=== PATIENT | female | born 1985 | race Caucasian/White ===

== ENCOUNTER 2020-05-30 13:35 | Emergency (ER) | payer OTHER, SELFPAY ==
[2020-05-30 13:35] VITALS: BP 129/81; PULSE 70; RESP 14; TEMP 36.4; O2SAT 98; BMI 18.4
--- NOTE | 2020-05-30 13:37 | ED_ITS ---
HPI - Abdominal Pain General Chief Complaint: Abdominal Pain Stated Complaint: SEVERE STOMACH PAIN STARTED FEW HOURS AGO Time Seen by Provider: 05/30/20 13:37 Source: patient Mode of arrival: Ambulatory Limitations: no limitations History of Present Illness HPI narrative: 34-year-old female nonsmoker with noncontributory medical history presents with a chief complaint of relatively sudden onset upper abdominal pain that started a few hours ago. She states it is worse when she moves and improves with rest. She states she feels it might get worse when she eats or drinks. Her last oral intake was about 2 hours ago. She has been nauseated but denies any vomiting. She states the pain is aching and cramping and relatively constant. She denies any radiation of her pain. She denies chest pain or shortness of breath. She has no runny nose, sore throat or cough. She denies any change in bowel habits such as constipation or diarrhea. She denies any dysuria, frequency or urgency. MD complaint: abdominal pain Onset (ago): hour(s) Pain Consistency: constant Location: epigastric Severity: moderate Quality: cramping and aching Radiation: none Migration to: no migration Relieving factors: nothing Exacerbating factors: eating and movement Associated symptoms: nausea Related Data Previous Rx's Medication Instructions Recorded pantoprazole [Protonix] 40 mg PO DAILY #30 tab 05/30/20 Allergies Allergy/AdvReac Type Severity Reaction Status Date / Time cefaclor [CEFACLOR] Allergy Mild Hives Verified 05/30/20 13:44 Sulfa (Sulfonamide Allergy Mild BLISTERS Verified 05/30/20 13:44 Antibiotics) IN MOUTH [SULFA (SULFONAMIDE ANTIBIOTICS)] Review of Systems Constitutional Constitutional: Denies chills, Denies fatigue, Denies fever(s), Denies frequent falls, Denies lethargy and Denies weakness Eyes Eyes: Denies change in vision, Denies eye discharge, Denies irritation and Denies loss of vision ENT Ears, Nose, Mouth, and Throat: Denies change in voice, Denies dizziness, Denies neck pain, Denies sore throat and Denies throat swelling Cardiovascular Cardiovascular: Denies chest pain, Denies irregular heart rhythm, Denies lightheadedness, Denies palpitations, Denies dyspnea, Denies dyspnea on exertion and Denies orthopnea Respiratory Respiratory: Denies cough, Denies dyspnea, Denies dyspnea on exertion and Denies wheezing Gastrointestinal Gastrointestinal: Reports abdominal pain, Denies change in bowel habits, Denies diarrhea, Reports nausea and Denies vomiting Musculoskeletal Musculoskeletal: Denies neck pain and Denies numbness Integumentary/Breasts Skin/Breast: Denies pruritus, Denies erythema, Denies rash and Denies wounds Neurologic Neurologic: Denies behavioral changes, Denies confusion, Denies dizziness, Denies frequent falls, Denies loss of vision, Denies numbness and Denies weakness Psychiatric Psychiatric: Denies anxiety, Denies behavioral changes, Denies confusion, Denies depression, Denies homicidal ideation and Denies suicidal ideation Endocrine Endocrine: Denies fatigue, Denies flushing and Denies palpitations Hematologic/Lymphatic Hematologic/Lymphatic: Denies easy bruising Allergic/Immunologic Allergic/Immunologic: Denies urticaria, Denies throat swelling and Denies wheezing Patient History Surgical History Status post myringotomy with insertion of tube Family History Father Age: 61 Sleep apnea High cholesterol Mother Age: 61 High cholesterol Grandfather Age: 83 Lung cancer Colorectal cancer ETOH abuse Grandmother Age: 85 High cholesterol Stroke Social History Smoking Status: Never smoker Smoking Status: Never smoker alcohol intake frequency: 0-2 drinks per day Substance Use Type: does not use Exam Narrative Exam Narrative: GENERAL: [34] year old patient appears stated age. Well- nourished, well-developed patient, in mild distress. Obviously uncomfortable, rubbing her upper abdomen, holding an emesis bag which is empty HEAD: Atraumatic. Normocephalic. EYES: Pupils equal round and reactive. Extraocular motions intact. No scleral icterus. No injection or drainage. ENT: Nose without bleeding, purulent drainage. Throat without erythema, tonsill ar hypertrophy or exudate. Airway patent. NECK: Trachea midline. Non tender CARDIOVASCULAR: Regular rate and rhythm without murmurs, gallops, or rubs. RESPIRATORY: Clear to auscultation. Breath sounds equal bilaterally. No wheezes, rales, or rhonchi. GASTROINTESTINAL: Abdomen soft, non-tender, nondistended. EXTREMITIES: No edema or joint tenderness. BACK: Nontender without deformity or crepitance. No flank tenderness. NEURO: AOx3. SKIN: No rash or erythema of visible areas Initial Vital Signs Initial Vital Signs: Vital Signs Temperature 97.6 F 05/30/20 13:35 Pulse Rate 70 05/30/20 13:35 Respiratory Rate 14 05/30/20 13:35 Blood Pressure 129/81 05/30/20 13:35 Pulse Oximetry 98 05/30/20 13:35 Course Orders Ordered: Discontinued Medications Al Hydrox/Mg Hydrox/Simethicone 20 ml/ Lidocaine HCl 15 ml 0 ml PO NOW ONE Stop: 05/30/20 13:49 Last Admin: 05/30/20 14:04 Dose: 35 ml Documented by: KRISTAL Lactated Ringer's (Lactated Ringers) 1,000 mls @ 1,000 mls/hr IV BOLUS ONE Stop: 05/30/20 14:47 Last Infusion: 05/30/20 15:08 Dose: 0 mls/hr Documented by: Admin: 05/30/20 14:03 Dose: 1,000 mls/hr Documented by: KRISTAL Ondansetron HCl (Ondansetron 4 Mg/2 Ml Inj) 4 mg IV Q4HR PRN PRN Reason: Nausea And Vomiting Last Admin: 05/30/20 14:04 Dose: 4 mg Documented by: KRISTAL Pantoprazole Sodium (Pantoprazole 40 Mg Vial) 40 mg IV NOW ONE Stop: 05/30/20 13:49 Last Admin: 05/30/20 14:04 Dose: 40 mg Documented by: KRISTAL Vital Signs Vital signs: Vital Signs - 8 hr 05/30/20 13:35 Temperature 97.6 F Pulse Rate 70 Respiratory Rate 14 Blood Pressure 129/81 Pulse Oximetry 98 MDM - Abdominal Pain Lab Data Result diagrams: 05/30/20 13:48 05/30/20 13:48 Labs: Lab Results 05/30/20 05/30/20 Range/Units 13:48 13:48 WBC 7.3 (4.5-11.0) X10^3/uL RBC 4.74 (4.0-5.2) X10^6/uL Hgb 14.2 (12.0-16.0) g/dL Hct 41.5 (36-46) % MCV 87.6 (80-100) fL MCH 29.9 (26-34) PG MCHC 34.1 (30-36) % RDW 13.2 (11.6-14.8) % Plt Count 263 (150-400) X10^3/uL Neut % (Auto) 60.7 (50-75) % Lymph % (Auto) 28.5 (25-40) % [place] % (Auto) 7.9 (3-14) % Eos % (Auto) 1.5 L (2-4) % Baso % (Auto) 1.4 (0-2) % Neut # (Auto) 4400 (5914-3966) /uL Lymph # (Auto) 2100 (0849-3444) /uL [place] # (Auto) 600 (0-900) /uL Eos # (Auto) 100 (0-450) /uL Baso # (Auto) 100 (0-100) /uL Sodium 138 (137-145) mmol/L Potassium 3.5 (3.4-5.1) mmol/L Chloride 105 (98-107) mmol/L Carbon Dioxide 26 (22-32) mmol/L BUN 14 (7-17) mg/dL Creatinine 0.64 (0.52-1.04) mg/dL Estimated GFR > 60.0 (>60) mL/min BUN/Creatinine Ratio 21.9 (6-22) Glucose 103 H (70-100) mg/dL Calcium 9.1 (8.4-10.2) mg/dL Total Bilirubin 0.4 (0.2-1.3) mg/dL AST 27 (14-36) IU/L ALT 13 (<35) IU/L Alkaline Phosphatase 50 (38-126) U/L Total Protein 7.5 (6.3-8.2) g/dL Albumin 4.6 (3.5-5.0) g/dL Globulin 2.9 (1.7-4.1) g/dL Albumin/Globulin Ratio 1.6 (1.0-2.8) Lipase 81 (23-300) U/L Point of care testing: Point of Care Testing Test Results Negative Urine Dip Bedside Urine Glucose Negative Bedside Urine Bilirubin - Negative Bedside Urine Ketone - Negative Urine Specific [place] 1.015 Bedside Urine Occult Blood - Negative Bedside Urine pH 7.0 Bedside Urine Protein - Negative Bedside Urine Urobilinogen - Negative Bedside Urine Nitrite - Negative Bedside Urine Leukocytes - Negative Esterase MDM Narrative Medical decision making narrative: Multiple etiologies for patient's symptoms considered including: [Bowel obstruction (thought unlikely given lack of exam findings and complete resolution of symptoms) versus] Patient's symptoms improved over duration of stay with above-stated therapies. Findings and discharge diagnosis discussed with patient/family followed by verbalization of understanding Return precautions discussed with patient/family whom verbalize understanding. Discharge Plan Departure Patient Disposition: Home Clinical Impression: Acute epigastric pain Instructions: DI for Epigastric Pain Activity Restrictions/Additional Instructions: *You have been diagnosed with [acute epigastric pain likely due to esophageal spasm, increased acid production, possibly early ulcer. Your exam, response to medications and lab work are very reassuring] *What to do: *Take medications as directed. Avoid excess caffeine, nicotine, alcohol, spicy or fatty foods *Follow up with your primary care provider in 2-3 days, call for an appointment. Let them know you were seen in the Emergency Department and that we ask that you be seen in follow up *Return to ER if you should have any new, worsening or concerning symptoms, such as [increasing pain, persistent vomiting, fever greater than 101 F or other bothersome symptoms] Prescriptions: New pantoprazole [Protonix] 40 mg tablet,delayed release (DR/EC) 40 mg PO DAILY Qty: 30 RF: 0
[2020-05-30 13:42] VITALS: BP 129/81; PULSE 73; O2SAT 99
[2020-05-30 13:48] VITALS: O2SAT 95
[2020-05-30 14:00] VITALS: BP 114/70
[2020-05-30 14:03] LABS: Add Manual Diff / Slide Review NO; Basophils Absolute Auto 100 /uL (0-100); Basophils Percent Auto 1.4 % (0-2); Eosinophils Absolute Auto 100 /uL (0-450); Eosinophils Percent Auto 1.5 % (2-4); Hematocrit 41.5 % (36-46); Hemoglobin 14.2 g/dL (12.0-16.0); Lymphocytes Absolute Auto 2100 /uL (1100-4500); Lymphocytes Percent Auto 28.5 % (25-40); Mean Corpuscular HGB Conc 34.1 % (30-36); Mean Corpuscular Hemoglobin 29.9 PG (26-34); Mean Corpuscular Volume 87.6 fL (80-100); Monocytes Absolute Auto 600 /uL (0-900); Monocytes Percent Auto 7.9 % (3-14); Neutrophils Absolute Auto 4400 /uL (1500-7000); Neutrophils Percent Auto 60.7 % (50-75); Platelet Count 263 X10^3/uL (150-400); Red Blood Cell Count 4.74 X10^6/uL (4.0-5.2); Red Cell Distribution Width 13.2 % (11.6-14.8); White Blood Cell Count 7.3 X10^3/uL (4.5-11.0)
[2020-05-30] MEDS: LACTATED RINGERS 1,000 ML 1000 ML IV (14:03)
[2020-05-30] MEDS: PANTOPRAZOLE 40 MG VIAL IV (14:04)
[2020-05-30] MEDS: MAG HYDROX/ALUMINUM/SIMETH SUS 20 ML, LIDOCAINE VISCOUS 2% 15 ML PO (14:04)
[2020-05-30] MEDS: ONDANSETRON 4 MG/2 ML INJ IV (14:04)
[2020-05-30 14:09] LABS: Alanine Aminotransferase 13 IU/L (<35); Albumin 4.6 g/dL (3.5-5.0); Albumin Globulin Ratio 1.6 (1.0-2.8); Alkaline Phosphatase 50 U/L (38-126); Aspartate Aminotransferase 27 IU/L (14-36); BUN Creatinine Ratio 21.9 (6-22); Bilirubin Total 0.4 mg/dL (0.2-1.3); Blood Urea Nitrogen 14 mg/dL (7-17); Calcium 9.1 mg/dL (8.4-10.2); Carbon Dioxide 26 mmol/L (22-32); Chloride 105 mmol/L (98-107); Estimated Glomerular Filt Rate > 60.0 mL/min (>60); Globulin 2.9 g/dL (1.7-4.1); Glucose 103 mg/dL (70-100); HEMOLYSIS 17 (0-50); Lipase 81 U/L (23-300); Potassium 3.5 mmol/L (3.4-5.1); Sodium 138 mmol/L (137-145); Total Protein 7.5 g/dL (6.3-8.2)
[2020-05-30 15:08] VITALS: BP 110/77; PULSE 74; RESP 12; O2SAT 97
--- NOTE | 2020-05-30 19:08 | PC.NURSE ---
patient called in stating that her symptoms returned and she is not feeling well. She was instructed to follow her medication prescription order, watch for signs of a worsening condition and follow up with her primary care doctor. She was also informed that she could always come back in if she feels she needs to be seen.
== END 2020-05-30 15:10 | disposition home or self-care (01) ==
PROVIDERS: Emergency Provider Emergency Medicine; Family Provider Obstetrics & Gynecology
DX: R10.13 Epigastric pain (principal); R11.0 Nausea
CPT/HCPCS: 36415; 80053; 81003; 81025; 83690; 85025; 96361; 96374; 96375; 99281; 99284; C9113; J2405

== ENCOUNTER 2020-08-14 15:15 | Outpatient (RCR) | payer OTHER, SELFPAY ==
--- NOTE | 2020-07-31 17:06 | PT.OIE ---
Current Diagnoses Cervicalgia (07/31/20) Headache, unspecified (07/31/20) Past Surgical History (Last Reviewed 05/30/20 @ 14:07 by Geraldo Hampton DO) Status post myringotomy with insertion of tube Visit Care Team Role Provider Type Sara Mast DO Family Provider Non-Staff Primary Care Provider Specialty: Family Practice Address: [address] [place] [address], [id number] Email: Regina Webb DO Attending Provider Non-Staff Referring Provider Specialty: Psychiatry Address: [address] [place] [address], [id number] Email: Physical Therapy Initial Evaluation PT-OP-A Visit Information Start: 07/31/20 16:38 Freq: Status: Active Protocol: Document 07/31/20 16:39 HH (Rec: 07/31/20 17:04 HH [email or web address]) Out-Patient Physical Therapy Visit Information Visit Information Visit Type Initial Evaluation Visit Start Time 15:00 Visit Stop Time 16:00 Total Visit Minutes 45 Visit Number 1/60 Number of FLAT KNITTER Visits 0 Evaluation Information Evaluation Date 07/31/20 PT-OP-B Current Condition Start: 07/31/20 16:38 Freq: Status: Active Protocol: Document 07/31/20 16:39 HH (Rec: 07/31/20 17:04 HH [email or web address]) Current Condition History of Current Condition Onset Date 10 months ago Current Complaints tension headache, migraine History of Current Condition pt is a 34yo female here for her tension headache and occasional migrane. 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 She noticed her headache always starts from her R base of the skull and radiates to L and forehead. Her headaches only take place during workdays (pt works 4 days a week) and she noticed moving around relive her symptoms but doing heavy lifting (once per week) tend to worsen her headache, especially upper body strengthening workouts. Besides, she has had 4 major migraines 4 times over the past [address] scan and X-ray and all show negative findings. Treatment Goals Patient/Caregiver Goals 1. to regain full cervical ROM 2. to be headache free./ PT-OP-C Subjective Start: 07/31/20 16:38 Freq: Status: Active Protocol: Document 07/31/20 16:39 HH (Rec: 07/31/20 17:04 [email or web address]) Patient Questionnaires Neck Disability Index NDI Score 7 Neck Disability Index Impairment 1 to 19% Impaired (Score 1-9) Quick Dash- Upper Extremity Quick Dash UE Score 0 Quick Dash UE Impairment 0% Impaired (Score 0) OP-PT Pain Assessment Location base of skull (headache) Intensity 7 Scale Used Numeric (0 - 10) Description Aching,Pressure Frequency Frequent Pain Aggravating Factors Position Pain Alleviating Factors Lying Supine,Exercise,Massage PT-OP-F Manual Assessment Start: 07/31/20 16:38 Freq: Status: Active Protocol: Document 07/31/20 16:39 HH (Rec: 07/31/20 17:04 [email or web address]) Manual Assessments Soft Tissue Assessment Soft Tissue Mobility Assessment significant hypertonicity at SCM, levator scap, upper trapezius and suboccipital R>L PT-OP-K Range of Motion Start: 07/31/20 16:38 Freq: Status: Active Protocol: Document 07/31/20 16:39 HH (Rec: 07/31/20 17:04 [email or web address]) Cervical Spine Range of Motion Cervical Spine Active Degrees Testing Position Sitting Flexion 65 Extension 65 Rotation Left 60 Rotation Right 72 Lateral Flexion Left 30 Lateral Flexion Right 45 ROM Limitations Soft Tissue Tightness Comments stretching pain at end range for all ROM PT-OP-L Special Tests Start: 07/31/20 16:38 Freq: Status: Active Protocol: Document 07/31/20 16:39 HH (Rec: 07/31/20 17:04 [email or web address]) Special Tests Cervical Spine Special Tests Foraminal Compression Test Results -ve Slump Test Results -ve Spurling's Test Test Results -ve PT-OP-M Strength Start: 07/31/20 16:38 Freq: Status: Active Protocol: Document 07/31/20 16:39 HH (Rec: 07/31/20 17:05 [email or web address]) Cervical Spine Strength Cervical Spine Manual Muscle Testing Testing Position Supine Comments deep cervical flexor endurance = 18s. 20s prone extension hold= >1 minute PT-OP-Q Treatments Start: 07/31/20 16:38 Freq: Status: Active Protocol: Document 07/31/20 16:39 (Rec: 07/31/20 17:04 [email or web address]) Therapeutic Exercises Supine Exercises tennis ball release Supine Exercise Name peanut shape Side bilateral Comments at suboccipital, for HEP Sitting Exercises levator stretch Sitting Exercise Name nose towards armpit with assistance in stretching Side bilateral Reps/Minutes 15 sec Comments for HEP Standing Exercises chin tuck Standing Exercise Name against wall Side bilateral Reps/Minutes 3 sec hold x 10 Comments for HEP Manual Therapy Treatment Soft Tissue Mobilization SCM, upper trap Mobilization Type Sustained Pressure,Trigger Point Release Intensity/Depth Moderate Body Position Supine Comments tonicity noted R>L suboccipitals Body Location R and L Mobilization Type Sustained Pressure,Trigger Point Release Intensity/Depth Moderate Body Position Supine Comments tonicity noted R>L PT-OP-T Assessment and Plan Start: 07/31/20 16:38 Freq: Status: Active Protocol: Document 07/31/20 16:39 (Rec: 07/31/20 17:04 [email or web address]) Physical Therapy Assessment Rehab Potential Rehabilitation Potential Excellent Evaluation Complexity Number of Personal Factors/Comorbidities 0 Number of Body Systems Impaired 1-2 Clinical Presentation at Evaluation Stable Impairments Impairments Activity Tolerance,Functional Activities,Functional Mobility ,Pain,Posture,ROM,Soft Tissue Mobility,Strength Goals HEP Impairment pt does not have a HEP Half-Way Goal (LTG) pt will comply to HEP independently and safely LTG Duration 4 weeks cervical ROM Impairment pt has pain at end range of all cervical ROM Short Term Goal (STG) pt will gain 15 degrees on cervical rotation bilaterally STG Duration 4 weeks Half-Way Goal (LTG) pt will not have pain during any cervical ROM at end range. LTG Duration 8 weeks cervical endurance Impairment 18 seconds on cervical deep flexion endurance test Short Term Goal (STG) pt will improve her cervical deep flexion strength to be hold up > 30 s without increase in discomfort STG Duration 4 weeks Decoration Checker Goal (LTG) pt will improve her cervical deep flexion strength to be hold up > 40 s without increase in discomfort LTG Duration 8 weeks headache Impairment pt has tension headahce 4 days /week Short Term Goal (STG) pt will not have tension headache more than 2 times a week to improve her quality of life STG Duration 4 weewks Half-Way Goal (LTG) pt will be headache free to improve her quality of life and able to tolerate 8 hours work day. LTG Duration 8 weeks Assessment Summary Assessment pt is a 34 yo female here for her chronic tension headache since last year. Upon assessment, her headache seems to be stress related since pt doesnt have it on non-work days, along with hypertonicity at suboccipitals, SCM, upper trap and levator scap R>L. She does present minimal limited cervical rotation and significant weak deep cervical flexors (18 seconds ). There' s no signs of radiculopathy symptoms. pt will certainly benefit from skilled therapy to address her aforementioned symptoms by reducing her cervical muscle tonicity, improving her overall cervical stabilizers strength and increasing cervical ROM. Physical Therapy Plan Frequency and Duration Frequency of Treatment 1x/Week Duration of Treatment 8 weeks Plan of Care Start Date 07/31/20 Plan of Care End Date 09/29/20 Therapeutic Interventions Therapeutic Interventions Home Exercise Program,Joint Mobilizations,Manual Therapy, Neuromuscular Re-education, Patient/Caregiver Education, Self-Care/Home Management,Soft Tissue Mobilization,Taping, Therapeutic Activities, Therapeutic Exercises Modalities Cold Pack/Ice Massage,Electric Stimulation,Hot Packs, Infrared Therapy,Traction- Mechanical,Ultrasound Next Visit Focus/Plan Next Note Type Treatment Note Next Visit Plan review HEP deep cervical strengthening pecs stretch
--- NOTE | 2020-07-31 17:06 | PT.OPPOC ---
Physical, Occupational & Speech Therapy [facility] Current Diagnoses Cervicalgia (07/31/20) Headache, unspecified (07/31/20) Visit Care Team Role Provider Type Sara Mast DO Family Provider Non-Staff Primary Care Provider Specialty: Family Practice Address: [address] [place] [address], [id number] Email: Regina Webb DO Attending Provider Non-Staff Referring Provider Specialty: Psychiatry Address: [address] [place] [address], [id number] Email: Plan Of Care PT-OP-T Assessment and Plan Start: 07/31/20 16:38 Freq: Status: Active Protocol: Document 07/31/20 16:39 (Rec: 07/31/20 17:04 [email or web address]) Physical Therapy Assessment Rehab Potential Rehabilitation Potential Excellent Evaluation Complexity Number of Personal Factors/Comorbidities 0 Number of Body Systems Impaired 1-2 Clinical Presentation at Evaluation Stable Impairments Impairments Activity Tolerance,Functional Activities,Functional Mobility ,Pain,Posture,ROM,Soft Tissue Mobility,Strength Goals HEP Impairment pt does not have a HEP Single Spindle Screw Machine Operator Goal (LTG) pt will comply to HEP independently and safely LTG Duration 4 weeks cervical ROM Impairment pt has pain at end range of all cervical ROM Short Term Goal (STG) pt will gain 15 degrees on cervical rotation bilaterally STG Duration 4 weeks Single Spindle Screw Machine Operator Goal (LTG) pt will not have pain during any cervical ROM at end range. LTG Duration 8 weeks cervical endurance Impairment 18 seconds on cervical deep flexion endurance test Short Term Goal (STG) pt will improve her cervical deep flexion strength to be hold up > 30 s without increase in discomfort STG Duration 4 weeks Single Spindle Screw Machine Operator Goal (LTG) pt will improve her cervical deep flexion strength to be hold up > 40 s without increase in discomfort LTG Duration 8 weeks headache Impairment pt has tension headahce 4 days /week Short Term Goal (STG) pt will not have tension headache more than 2 times a week to improve her quality of life STG Duration 4 weewks Care Home Goal (LTG) pt will be headache free to improve her quality of life and able to tolerate 8 hours work day. LTG Duration 8 weeks Assessment Summary Assessment pt is a 34 yo female here for her chronic tension headache since last year. Upon assessment, her headache seems to be stress related since pt doesnt have it on non-work days, along with hypertonicity at suboccipitals, SCM, upper trap and levator scap R>L. She does present minimal limited cervical rotation and significant weak deep cervical flexors (18 seconds ). There' s no signs of radiculopathy symptoms. pt will certainly benefit from skilled therapy to address her aforementioned symptoms by reducing her cervical muscle tonicity, improving her overall cervical stabilizers strength and increasing cervical ROM. Physical Therapy Plan Frequency and Duration Frequency of Treatment 1x/Week Duration of Treatment 8 weeks Plan of Care Start Date 07/31/20 Plan of Care End Date 09/29/20 Therapeutic Interventions Therapeutic Interventions Home Exercise Program,Joint Mobilizations,Manual Therapy, Neuromuscular Re-education, Patient/Caregiver Education, Self-Care/Home Management,Soft Tissue Mobilization,Taping, Therapeutic Activities, Therapeutic Exercises Modalities Cold Pack/Ice Massage,Electric Stimulation,Hot Packs, Infrared Therapy,Traction- Mechanical,Ultrasound Next Visit Focus/Plan Next Note Type Treatment Note Next Visit Plan review HEP deep cervical strengthening pecs stretch Plan of Care Dates Plan of Care Start Date 07/31/20 Plan of Care End Date 09/29/20 Electronically Signed by: Justyn Thacker PT 07/31/20 [id number] Please Sign and Return: I have reviewed this Plan of Care and certify that the skilled therapy services above are required to meet the patient?s needs. Physician Signature Date Printed Name and Credentials Clinical Instructor Signature Printed Name and Credentials
--- NOTE | 2020-08-07 17:16 | PT.OTN ---
Current Diagnoses Cervicalgia (08/07/20) Headache, unspecified (08/07/20) Physical Therapy Treatment Note PT-OP-A Visit Information Start: 07/31/20 16:38 Freq: Status: Active Protocol: Document 08/07/20 16:47 HH (Rec: 08/07/20 17:16 HH [email or web address]) Out-Patient Physical Therapy Visit Information Visit Information Visit Type Treatment Note Visit Start Time 15:15 Visit Stop Time 16:02 Total Visit Minutes 47 Visit Number 2/60 Number of CAFETERIA HELPER Visits 0 PT-OP-B Current Condition Start: 07/31/20 16:38 Freq: Status: Active Protocol: Document 07/31/20 16:39 HH (Rec: 07/31/20 17:04 HH [email or web address]) Current Condition History of Current Condition Onset Date 10 months ago Current Complaints tension headache, migraine History of Current Condition pt is a 34yo female here for her tension headache and occasional migrane. 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 She noticed her headache always starts from her R base of the skull and radiates to L and forehead. Her headaches only take place during workdays (pt works 4 days a week) and she noticed moving around relive her symptoms but doing heavy lifting (once per week) tend to worsen her headache, especially upper body strengthening workouts. Besides, she has had 4 major migraines 4 times over the past [address] scan and X-ray and all show negative findings. Treatment Goals Patient/Caregiver Goals 1. to regain full cervical ROM 2. to be headache free./ PT-OP-C Subjective Start: 07/31/20 16:38 Freq: Status: Active Protocol: Document 08/07/20 16:47 HH (Rec: 08/07/20 17:16 HH [email or web address]) OP-PT Subjective Patient Comments Patient Comments My neck gets really tight after doing the stretch and i dont know why Patient Reported Progress Same PT-OP-F Manual Assessment Start: 07/31/20 16:38 Freq: Status: Active Protocol: Document 07/31/20 16:39 HH (Rec: 07/31/20 17:04 HH [email or web address]) Manual Assessments Soft Tissue Assessment Soft Tissue Mobility Assessment significant hypertonicity at SCM, levator scap, upper trapezius and suboccipital R>L PT-OP-K Range of Motion Start: 07/31/20 16:38 Freq: Status: Active Protocol: Document 07/31/20 16:39 HH (Rec: 07/31/20 17:04 HH [email or web address]) Cervical Spine Range of Motion Cervical Spine Active Degrees Testing Position Sitting Flexion 65 Extension 65 Rotation Left 60 Rotation Right 72 Lateral Flexion Left 30 Lateral Flexion Right 45 ROM Limitations Soft Tissue Tightness Comments stretching pain at end range for all ROM PT-OP-L Special Tests Start: 07/31/20 16:38 Freq: Status: Active Protocol: Document 07/31/20 16:39 HH (Rec: 07/31/20 17:04 [email or web address]) Special Tests Cervical Spine Special Tests Foraminal Compression Test Results -ve Slump Test Results -ve Spurling's Test Test Results -ve PT-OP-M Strength Start: 07/31/20 16:38 Freq: Status: Active Protocol: Document 07/31/20 16:39 HH (Rec: 07/31/20 17:05 [email or web address]) Cervical Spine Strength Cervical Spine Manual Muscle Testing Testing Position Supine Comments deep cervical flexor endurance = 18s. 20s prone extension hold= >1 minute PT-OP-Q Treatments Start: 07/31/20 16:38 Freq: Status: Active Protocol: Document 08/07/20 16:47 HH (Rec: 08/07/20 17:16 HH [email or web address]) Therapeutic Exercises Sidelying Exercises open book Side bilateral Reps/Minutes 8 x 2 Comments cues on upper thoracic movement. Sitting Exercises trap stretch Sitting Exercise Name cervical lateral flexion Reps/Minutes 10 sec hold x 4 Comments for HEP cervical rotation stretch with towel Side right Equipment Used with towel Comments for HEP with towel levator stretch Comments discontinue d/t increase pain Manual Therapy Treatment Soft Tissue Mobilization SCM, upper trap Mobilization Type Sustained Pressure,Trigger Point Release Intensity/Depth Moderate Body Position Supine Comments tonicity noted R>L suboccipitals Body Location R and L Mobilization Type Sustained Pressure,Trigger Point Release Intensity/Depth Moderate Body Position Supine Comments tonicity noted R>L Joint Mobilizations MWM Joint T2-T3 Direction L lateral glide at spinous process Grade II Body Position Sitting Reps/Duration 10 reps x 2 Comments with R cervical rotation. report pain decreased after PT-OP-T Assessment and Plan Start: 07/31/20 16:38 Freq: Status: Active Protocol: Document 08/07/20 16:47 (Rec: 08/07/20 17:16 [email or web address]) Physical Therapy Assessment Goals HEP Impairment pt does not have a HEP Dredging Inspector Goal (LTG) pt will comply to HEP independently and safely LTG Duration 4 weeks cervical ROM Impairment pt has pain at end range of all cervical ROM Short Term Goal (STG) pt will gain 15 degrees on cervical rotation bilaterally STG Duration 4 weeks Dredging Inspector Goal (LTG) pt will not have pain during any cervical ROM at end range. LTG Duration 8 weeks cervical endurance Impairment 18 seconds on cervical deep flexion endurance test Short Term Goal (STG) pt will improve her cervical deep flexion strength to be hold up > 30 s without increase in discomfort STG Duration 4 weeks Dredging Inspector Goal (LTG) pt will improve her cervical deep flexion strength to be hold up > 40 s without increase in discomfort LTG Duration 8 weeks headache Impairment pt has tension headahce 4 days /week Short Term Goal (STG) pt will not have tension headache more than 2 times a week to improve her quality of life STG Duration 4 weewks Fdc Goal (LTG) pt will be headache free to improve her quality of life and able to tolerate 8 hours work day. LTG Duration 8 weeks Assessment Summary Assessment Pt reports increase in pain with levator scap stretch. Change it to lateral flexion stretch today. pt's pain tends to decrease with MWM at T2-T3 level during cervical R rotation. Also taught pt open book as HEP to improve thoracic rotation bilaterally. Physical Therapy Plan Frequency and Duration Frequency of Treatment 1x/Week Duration of Treatment 8 weeks Plan of Care Start Date 07/31/20 Plan of Care End Date 09/29/20 Next Visit Focus/Plan Next Note Type Treatment Note Next Visit Plan review HEP deep cervical strengthening pecs stretch
--- NOTE | 2020-08-14 16:23 | PT.OTN ---
Current Diagnoses Cervicalgia (08/14/20) Headache, unspecified (08/14/20) Physical Therapy Treatment Note PT-OP-A Visit Information Start: 07/31/20 16:38 Freq: Status: Active Protocol: Document 08/14/20 15:03 HH (Rec: 08/14/20 16:20 [id number]) Out-Patient Physical Therapy Visit Information Visit Information Visit Type Treatment Note Visit Start Time 15:15 Visit Stop Time 16:00 Total Visit Minutes 45 Visit Number 3/60 Number of MASTERCAM PROGRAMMER Visits 0 PT-OP-B Current Condition Start: 07/31/20 16:38 Freq: Status: Active Protocol: Document 07/31/20 16:39 HH (Rec: 07/31/20 17:04 [email or web address]) Current Condition History of Current Condition Onset Date 10 months ago Current Complaints tension headache, migraine History of Current Condition pt is a 34yo female here for her tension headache and occasional migrane. 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 She noticed her headache always starts from her R base of the skull and radiates to L and forehead. Her headaches only take place during workdays (pt works 4 days a week) and she noticed moving around relive her symptoms but doing heavy lifting (once per week) tend to worsen her headache, especially upper body strengthening workouts. Besides, she has had 4 major migraines 4 times over the past [address] scan and X-ray and all show negative findings. Treatment Goals Patient/Caregiver Goals 1. to regain full cervical ROM 2. to be headache free./ PT-OP-C Subjective Start: 07/31/20 16:38 Freq: Status: Active Protocol: Document 08/14/20 15:03 HH (Rec: 08/14/20 16:20 [email or web address]) OP-PT Subjective Patient Comments Patient Comments For some reason, m Patient Reported Progress Same PT-OP-F Manual Assessment Start: 07/31/20 16:38 Freq: Status: Active Protocol: Document 07/31/20 16:39 HH (Rec: 07/31/20 17:04 HH [email or web address]) Manual Assessments Soft Tissue Assessment Soft Tissue Mobility Assessment significant hypertonicity at SCM, levator scap, upper trapezius and suboccipital R>L PT-OP-K Range of Motion Start: 07/31/20 16:38 Freq: Status: Active Protocol: Document 07/31/20 16:39 HH (Rec: 07/31/20 17:04 HH [email or web address]) Cervical Spine Range of Motion Cervical Spine Active Degrees Testing Position Sitting Flexion 65 Extension 65 Rotation Left 60 Rotation Right 72 Lateral Flexion Left 30 Lateral Flexion Right 45 ROM Limitations Soft Tissue Tightness Comments stretching pain at end range for all ROM PT-OP-L Special Tests Start: 07/31/20 16:38 Freq: Status: Active Protocol: Document 07/31/20 16:39 HH (Rec: 07/31/20 17:04 HH [email or web address]) Special Tests Cervical Spine Special Tests Foraminal Compression Test Results -ve Slump Test Results -ve Spurling's Test Test Results -ve PT-OP-M Strength Start: 07/31/20 16:38 Freq: Status: Active Protocol: Document 07/31/20 16:39 HH (Rec: 07/31/20 17:05 HH [email or web address]) Cervical Spine Strength Cervical Spine Manual Muscle Testing Testing Position Supine Comments deep cervical flexor endurance = 18s. 20s prone extension hold= >1 minute PT-OP-Q Treatments Start: 07/31/20 16:38 Freq: Status: Active Protocol: Document 08/14/20 15:03 HH (Rec: 08/14/20 16:20 HH [id number]) Therapeutic Exercises Prone Exercises cat camel Side bilateral Reps/Minutes 2 mins Comments for HEP Sidelying Exercises open book Side bilateral Reps/Minutes 8 x 2 Comments cues on upper thoracic movement. Sitting Exercises cervical flexion Sitting Exercise Name with slight trunk flexion Side bilateral Reps/Minutes 2 mins Comments for HEP trap stretch Sitting Exercise Name cervical lateral flexion Reps/Minutes 10 sec hold x 4 Comments for HEP Standing Exercises chin tuck Standing Exercise Name against wall Side bilateral Reps/Minutes 3 sec hold x 10 Comments for HEP Manual Therapy Treatment Soft Tissue Mobilization R piriformis Mobilization Type Sustained Pressure,Trigger Point Release Intensity/Depth Moderate Body Position Prone SCM, upper trap Mobilization Type Sustained Pressure,Trigger Point Release Intensity/Depth Moderate Body Position Supine Comments tonicity noted R>L suboccipitals Body Location R and L Mobilization Type Sustained Pressure,Trigger Point Release Intensity/Depth Moderate Body Position Supine Comments tonicity noted R>L Joint Mobilizations MWM Joint T2-T3 Direction L lateral glide at spinous process Grade II Body Position Sitting Reps/Duration 10 reps x 2 Comments with R cervical rotation. report pain decreased after PT-OP-T Assessment and Plan Start: 07/31/20 16:38 Freq: Status: Active Protocol: Document 08/14/20 15:03 HH (Rec: 08/14/20 16:20 HH [id number]) Physical Therapy Assessment Goals HEP Impairment pt does not have a HEP Funeral Workers Goal (LTG) pt will comply to HEP independently and safely LTG Duration 4 weeks cervical ROM Impairment pt has pain at end range of all cervical ROM Short Term Goal (STG) pt will gain 15 degrees on cervical rotation bilaterally STG Duration 4 weeks Detention Goal (LTG) pt will not have pain during any cervical ROM at end range. LTG Duration 8 weeks cervical endurance Impairment 18 seconds on cervical deep flexion endurance test Short Term Goal (STG) pt will improve her cervical deep flexion strength to be hold up > 30 s without increase in discomfort STG Duration 4 weeks Detention Goal (LTG) pt will improve her cervical deep flexion strength to be hold up > 40 s without increase in discomfort LTG Duration 8 weeks headache Impairment pt has tension headahce 4 days /week Short Term Goal (STG) pt will not have tension headache more than 2 times a week to improve her quality of life STG Duration 4 weewks Detention Goal (LTG) pt will be headache free to improve her quality of life and able to tolerate 8 hours work day. LTG Duration 8 weeks Assessment Summary Assessment pt came in with c/o continous tightness at night and back stretches seemed to help her. Reassess her neural flexibility today and noticed pt has poor mobility at mid thoracic and lumbar region. Consolidated her ex with catcamel, open book, neck flexion , upper trap stretch and clamshell. Physical Therapy Plan Frequency and Duration Frequency of Treatment 1x/Week Duration of Treatment 8 weeks Plan of Care Start Date 07/31/20 Plan of Care End Date 09/29/20 Therapeutic Interventions Therapeutic Interventions Home Exercise Program,Joint Mobilizations,Manual Therapy, Neuromuscular Re-education, Patient/Caregiver Education, Self-Care/Home Management,Soft Tissue Mobilization,Taping, Therapeutic Activities, Therapeutic Exercises Modalities Cold Pack/Ice Massage,Electric Stimulation,Hot Packs, Infrared Therapy,Traction- Mechanical,Ultrasound Next Visit Focus/Plan Next Note Type Treatment Note Next Visit Plan review HEP deep cervical strengthening pecs stretch
--- NOTE | 2020-08-28 16:08 | PT-OP ANOTE ---
pt mistakenly thought appointment is at afternoon. Requested pt to schedule 4 more appts
--- NOTE | 2020-11-06 11:55 | PT.OPDS ---
Current Diagnoses Cervicalgia (08/14/20) Headache, unspecified (08/14/20) Visit Care Team Role Provider Type Sara Mast DO Family Provider Non-Staff Primary Care Provider Specialty: Family Practice Address: [address] [place] [address], [id number] Email: Regina Webb DO Attending Provider Non-Staff Referring Provider Specialty: Psychiatry Address: [address] [place] [address], [id number] Email: Visit Number Visit Number Discharge Summary PT-OP-T Assessment and Plan Start: 07/31/20 16:38 Freq: Status: Active Protocol: Document 11/06/20 11:54 HH (Rec: 11/06/20 11:55 [email or web address]) Physical Therapy Plan Discharge Physical Therapy Discharge Reasons No Longer Attending PT Discharge Comments pt is no longer attending PT. Per EMR, pt has not shown any significant improvements. DC from PT today.
== END 2020-12-10 14:54 | disposition home or self-care (01) ==
LOC: PHYS 15:15
PROVIDERS: Family Provider Family Medicine; PCP Family Medicine; Referring Provider Psychiatry & Neurology Neurology; Visit Provider Psychiatry & Neurology Neurology
DX: R51.9 Headache, unspecified (principal); M54.2 Cervicalgia
CPT/HCPCS: 97110; 97140; 97161

== ENCOUNTER → 2021-04-15 18:10 | Outpatient (CLI) | payer OTHER, SELFPAY ==
[2021-04-15 18:37] LABS: COVID19 -Nasal RAPID Negative (Negative)
== END ==
PROVIDERS: Family Provider Family Medicine; PCP Family Medicine; Visit Provider Nurse Practitioner Family
DX: Z20.822 Contact with and (suspected) exposure to COVID-19 (principal)
CPT/HCPCS: 87635

== ENCOUNTER → 2021-08-08 15:55 | Outpatient (CLI) | payer OTHER, SELFPAY | PROVIDERS: Family Provider Family Medicine; PCP Family Medicine; Visit Provider Nurse Practitioner Family | DX: R30.0 Dysuria (principal) | CPT/HCPCS: 87086 ==

== ENCOUNTER → 2022-03-06 11:08 | Outpatient (CLI) | payer OTHER, SELFPAY ==
--- NOTE | 2022-03-06 11:09 | DI.RAD.S_ITS ---
PROCEDURE: XR HAND RT MIN 3V INDICATIONS: Right index finger injury TECHNIQUE: 3 views of the hand(s) acquired. COMPARISON: None. FINDINGS: Bones: No fractures or dislocations. Carpal bones are normally aligned. No suspicious bony lesions. Soft tissues: No suspicious soft tissue calcifications. Mild 2nd finger soft tissue swelling IMPRESSION: Soft tissue swelling without fracture or foreign body Approved by: Dominick Fowler M.D. on 03/06/2022 at 11:02
== END ==
PROVIDERS: Family Provider Family Medicine; PCP Family Medicine; Referring Provider Registered Nurse; Visit Provider Registered Nurse
DX: M79.641 Pain in right hand (principal); M79.89 Other specified soft tissue disorders
CPT/HCPCS: 73130

== ENCOUNTER → 2024-08-04 10:51 | Outpatient (CLI) | payer OTHER, SELFPAY ==
--- NOTE | 2024-08-04 10:53 | DI.RAD.S_ITS ---
PROCEDURE: XR CHEST 2V INDICATIONS: Cough TECHNIQUE: 2 views of the chest were acquired. COMPARISON: None. FINDINGS: Surgical changes and devices: None. Lungs and pleura: Lungs are clear. No pleural effusions or pneumothorax. Mediastinum: Mediastinal contours are normal. Heart size is normal. Bones and chest wall: No suspicious bony abnormalities. Soft tissues appear unremarkable. IMPRESSION: No acute cardiopulmonary abnormality is seen. Dictated by: Ludin Bennett M.D. on 08/04/2024 at 13:29 Approved by: Ludin Bennett M.D. on 08/04/2024 at 13:30
== END ==
PROVIDERS: Family Provider Family Medicine; PCP Family Medicine; Referring Provider Nurse Practitioner Family; Visit Provider Nurse Practitioner Family
DX: R05.9 Cough, unspecified (principal)
CPT/HCPCS: 71046

== ENCOUNTER → 2025-01-17 16:26 | Outpatient (CLI) | payer OTHER, SELFPAY ==
--- NOTE | 2025-01-17 | DI.MG.S_ITS ---
MM screening mammo BI: 01/17/2025. BI-RADS: 1 CLINICAL: 39-year old female for bilateral screening mammogram. Tyrer-Cuzick lifetime risk of 12.7%. No personal or first-degree family history of breast cancer. PRIOR EXAMS: None. This is a baseline mammogram. MAMMOGRAPHY TECHNIQUE: 2D and 3D (tomosynthesis) digital mammographic views obtained, with additional images as needed for full coverage. Current study was also evaluated with a Computer Aided Detection (CAD) system. DENSITY D. The breasts are extremely dense, which lowers the sensitivity of mammography. MAMMOGRAPHY FINDINGS Bilateral: No suspicious mass, asymmetry, microcalcification, or other abnormality seen. IMPRESSION: * No evidence of malignancy. RECOMMENDATIONS Bilateral * Annual screening mammography. OVERALL ASSESSMENT CATEGORY BI-RADS-1: Negative. The [employer] recommends annual screening mammography beginning at age 40 for women with average risk of breast cancer. ELECTRONICALLY SIGNED: Kenya Crowe M.D. on 01/20/2025 at 08:12:38 AM PT Interpreting Station ID: [id number]
== END ==
LOC: MAMMO 16:27
PROVIDERS: Family Provider Family Medicine; PCP Family Medicine; Referring Provider Family Medicine; Visit Provider Family Medicine
DX: Z12.31 Encounter for screening mammogram for malignant neoplasm of breast (principal); R92.343 Mammographic extreme density, bilateral breasts
CPT/HCPCS: 77063; 77067